=== PATIENT | male | born 1965 | race African-American/Black ===

== ENCOUNTER 2025-06-12 01:20 | Emergency (ER) | payer SELFPAY ==
[~2025-06-12] VITALS: Ht 175.3 cm; Wt 113.0 kg
[2025-06-12 01:30] VITALS: BP 143/73; PULSE 81; RESP 18; TEMP 36.6; O2SAT 98
[2025-06-12] MEDS ORDERED: BO1 TP (02:26)
[2025-06-12] MEDS ORDERED: IBUP-1455 MT (02:26)
[2025-06-12 02:48] VITALS: TEMP 97.9
[2025-06-12] MEDS: ACETAMINOPHEN 500MG TABLET PO ONE (02:48)
== END 2025-06-12 04:04 | disposition home or self-care (01) ==
LOC: ER 01:20
DX: S00.03XA Contusion of scalp, initial encounter (principal); X58.XXXA Exposure to other specified factors, initial encounter; Y93.89 Activity, other specified; Y92.89 Other specified places as the place of occurrence of the external cause; Y99.8 Other external cause status
CPT/HCPCS: 99284